=== PATIENT | male | born 1965 | race Asian ===

== ENCOUNTER 2016-10-10 15:34 | Emergency (ER) ==
--- NOTE | 2016-10-10 19:01 | PROVIDER DOCUMENTATION ---
HPI-Fever - General Chief Complaint: Fever Stated Complaint: FEVER Time Seen by Provider: 10/10/16 18:49 Source: patient Allergies/Adverse Reactions: Patient Allergies Allergy/AdvReac Type Severity Reaction Status Date / Time No Known Allergies Allergy Verified 12/13/15 15:03 Home Medications: Home Medication List Medication Instructions Recorded Confirmed Last Taken Type Clindamycin [Cleocin] 300 mg PO Q6HR #40 capsule 10/10/16 Unknown Rx Sulfamethoxazole/Trimethoprim 2 each PO BID #40 tablet 10/10/16 Unknown Rx [Bactrim Ds Tablet] - History of Present Illness-Fever Nature of Presenting Problem: 51 year old M presents to the ED with a cc of fever, cough, congestion, and body aches with an onset of 2 days. Fever Severity/Quality: reports: low grade Onset/Duration: reports: 2 days ago Timing: reports: still present Severity: reports: mild Cognitive Baseline: alert, oriented x3 Modifying Factors: improves with: nothing Associated Symptoms: reports: cough, fever/chills, sinus congestion/drainage Similar Symptoms Previously?: No Recently seen or treated by another doctor?: No Review of Systems - Adult - REVIEW OF SYSTEMS - ADULT Constitutional: reports: fever. denies: chills Eyes: reports: no symptoms reported Ears, Nose, Mouth & Throat: denies: ear pain, throat pain Cardiovascular: denies: chest pain, palpitations Respiratory: reports: cough. denies: shortness of breath Gastrointestinal: denies: nausea, vomiting Genitourinary: reports: no symptoms reported Musculoskeletal: reports: muscle aches. denies: muscle weakness Integumentary: denies: skin sores/ulcer, skin thickening Neurological: reports: no symptoms reported Psychiatric: reports: no symptoms reported Endocrine: reports: no symptoms reported Hematologic/Lymphatic: reports: no symptoms reported Allergic/Immunologic: reports: no symptoms reported All Other Systems: Reviewed and Negative Past History - Adult - PAST MEDICAL HISTORY-ADULT Review of Records: reports: Nursing Assessment Review, Medications Reviewed Major Childhood Illnesses: reports: denies history Cardiovascular: reports: HTN, hyperlipidemia Gastrointestinal: reports: GERD - PRIOR SURGERIES/PROCEDURES Surgical/Procedure History: reports: none - IMMUNIZATION STATUS Childhood Immunizations: See Nurse Assessment Flu Vaccine: See Nurse Assessment - SOCIAL HISTORY Smoking: cigarettes, greater than 1 pack/day Provider spent 3-5 mins advising pt. on dangers of tobacco.: Discussed manners to quit use, and f/u contacts for add'l counseling. Substance Use: none/never Alcohol Use Frequency: never Physical Exam-General - PHYSICAL EXAM-ADULT Initial Vital Signs Reviewed: Yes - CONSTITUTIONAL General Appearance: appears well, alert, no apparent distress - RESPIRATORY Respiratory: chest non-tender, lungs clear, normal breath sounds - CARDIOVASCULAR Cardiovascular: normal peripheral pulses, regular rate, rhythm, no edema - GASTROINTESTINAL (ABDOMEN) Abdominal Exam: non tender, soft - MUSCULOSKELETAL Extremity: normal inspection - SKIN Integumentary: other (1x2 cm lesion to left medial heel) - PSYCHIATRIC Psych/Mental Status: normal mood/affect, normal thought content, normal thought process, oriented x 3 Progress - PLAN OF CARE/RESULTS Progress/Plan/Lab Results: plan of care: imaging, labs, medications Orders Category Date Time Status Saline Loc NOW Care 10/10/16 18:53 Active CHEST-2 VIEWS [RAD] Stat Exams 10/10/16 18:53 Taken FOOT COMPLETE LEFT [RAD] Stat Exams 10/10/16 18:54 Taken BLOOD CULTURE [BLDCUL] Stat Lab 10/10/16 18:54 Ordered CBC WITH ELECTRONIC DIFF [HEME] Stat Lab 10/10/16 19:25 Completed COMPREHENSIVE METABOLIC PANEL [CHEM] Stat Lab 10/10/16 19:[address] Stat Lab 10/10/16 19:00 Completed LACTATE, PLASMA [CHEM] Stat Lab 10/10/16 19:25 Completed MAGNESIUM [CHEM] Stat Lab 10/10/16 19:25 Completed [address]IME WITH INR PL [COAG] Stat Lab 10/10/16 19:[address] [COAG] Stat Lab 10/10/16 19:25 Completed 0.9% Sodium Chloride Inj [Ns] 1,000 ml Med 10/10/16 21:08 Discontinued .ROUTE As Directed 0.9% Sodium Chloride Inj [Ns] 1,000 ml Med 10/10/16 21:08 Active IV 999 mls/hr Ketorolac [Toradol] Med 10/10/16 20:21 Discontinued 30 mg IV NOW ONE Laboratory Tests 10/10/16 10/10/16 10/10/16 19:00 19:25 19:25 WBC 10.14 RBC 4.74 Hgb 14.3 Hct 41.4 L MCV 87.3 MCH 30.2 MCHC 34.5 RDW Std Deviation 13.4 Plt Count 154 MPV 10.5 H Immature Gran % (Auto) 0.1 Neut % (Auto) 59.8 Lymph % (Auto) 26.5 [place] % (Auto) 11.2 H Eos % (Auto) 1.9 Baso % (Auto) 0.5 Immature Gran # (Auto) 0.01 Neut # (Auto) 6.06 Lymph # (Auto) 2.69 [place] # (Auto) 1.14 H Eos # (Auto) 0.19 Baso # (Auto) 0.05 PT INR APTT (Factor Assay) Sodium 134 L Potassium 3.7 Chloride 99 Carbon Dioxide 23 L Anion Gap 13 BUN 16 Creatinine 0.8 Estimated GFR/1.73 m2 > 60 BUN/Creatinine Ratio 20 Glucose 95 Calculated Osmolality 269 Calcium 9.4 Magnesium 2.1 Total Bilirubin 1.20 H AST 20 ALT 37 Alkaline Phosphatase 114 Total Protein 7.4 Albumin 4.2 Globulin 3.0 Albumin/Globulin Ratio 1.0 Plasma Lactate Influenza A (Rapid) NEGATIVE Influenza B (Rapid) NEGATIVE 10/10/16 10/10/16 19:25 19:25 WBC RBC Hgb Hct MCV MCH MCHC RDW Std Deviation Plt Count MPV Immature Gran % (Auto) Neut % (Auto) Lymph % (Auto) [place] % (Auto) Eos % (Auto) Baso % (Auto) Immature Gran # (Auto) Neut # (Auto) Lymph # (Auto) [place] # (Auto) Eos # (Auto) Baso # (Auto) PT 14.3 INR 1.08 APTT (Factor Assay) 33.7 Sodium Potassium Chloride Carbon Dioxide Anion Gap BUN Creatinine Estimated GFR/1.73 m2 BUN/Creatinine Ratio Glucose Calculated Osmolality Calcium Magnesium Total Bilirubin AST ALT Alkaline Phosphatase Total Protein Albumin Globulin Albumin/Globulin Ratio Plasma Lactate 0.9 Influenza A (Rapid) Influenza B (Rapid) Vital Signs - 24 hr 10/10/16 10/10/16 10/10/16 15:58 18:18 18:41 Temperature 99.8 F H 99.4 F 98.1 F Pulse Rate 110 H 82 Respiratory 20 20 Rate Blood Pressure 140/86 124/78 O2 Sat by Pulse 99 97 Oximetry Pt given results and will be d/c home w/ rx to follow up with PCP. Pt verbally understood instructions. Pt remained clinically stable throughout the course of the ED stay and will return if symptoms worsen. - XRAY 1 XRAY: Left XRAY Study: Foot Impression: Normal XRAY Interpretation: NAD: Dr. Joseph CASILLAS MD 2 XRAY Study: Chest Impression: Abnormal XRAY Interpretation: questionable RLL infiltrate: Dr. Sascha CHIN Departure - Departure Prescriptions: Sulfamethoxazole/Trimethoprim [Bactrim Ds Tablet] 2 each PO BID #40 tablet Clindamycin [Cleocin] 300 mg PO Q6HR #40 capsule Attestation - Scribe Verification/Attestation Scribe:: Andreina Blevins Acting as Scribe for:: Pawel Cummins Scribe documention review:: This chart was documented by a scribe and accurately reflects the service the provider performed and the decisions made by the provider. Physician Attestation - Physician Attestation I, the provider, attest to the following statement:: Pawel Cummins Physician documentation Attestation:: This documentation recorded by the scribe accurately reflects the service I personally performed and the decisions made by me.
[2016-10-10 19:32] LABS: MANUAL DIFF NEEDED? NO
[2016-10-10 19:37] LABS: BASO% 0.5 % (0.0-0.8); EOS# 0.19 X1000 (0.0-0.7); EOS% 1.9 % (0.0-10.0); HEMATOCRIT 41.4 % (42.0-52.0); HEMOGLOBIN 14.3 g/dL (14.0-18.0); IMM GRAN# 0.01 X1000 (0.0-0.04); IMM GRAN% 0.1 % (0.0-0.5); LYMPH# 2.69 X1000 (1.2-3.4); LYMPH% 26.5 % (20.5-51.1); MCH 30.2 PG (27-31); MCHC 34.5 g/dL (33-37); MCV 87.3 FL (81-99); MONO# 1.14 X1000 (0.11-0.59); MONO% 11.2 % (1.7-9.3); MPV 10.5 FL (7.4-10.4); NEUT% 59.8 % (42.2-75.2); PLT 154 X1000 (130-400); RBC 4.74 XMIL (4.7-6.1)
[2016-10-10 20:03] LABS: AGAP 13; ALBUMIN 4.2 g/dL (3.5-5.0); ALKALINE PHOSPHATASE 114 U/L (32-122); BUN 16 mg/dL (8-22); CALCIUM 9.4 mg/dL (8.8-10.2); CHLORIDE 99 mmol/L (98-107); COSMO 269; GOT 20 U/L (10-34); GPT 37 U/L (10-44); MAGNESIUM 2.1 mg/dL (1.5-2.7); POTASSIUM 3.7 mmol/L (3.5-5.1); SODIUM 134 mmol/L (136-145); TCO2 23 mmol/L (25-35); TOTAL PROTEIN 7.4 g/dL (6.3-8.3)
[2016-10-10 20:07] LABS: INR 1.08 (0.86-1.15); PROTIME 14.3 Seconds (12.1-15.5)
[2016-10-10 20:08] LABS: PTT PL 33.7 Seconds (22.6-43.9)
[2016-10-10] MEDS ORDERED: TORADOL IV ONE (20:21)
[2016-10-10] MEDS ORDERED: NS 2,000 ML ONE (21:08)
[2016-10-10] MEDS ORDERED: NS 1,000 ML IV ONE ×2 (21:08→22:30)
[2016-10-10] MEDS ORDERED: CLEOCIN ONE (23:16)
[2016-10-10] MEDS ORDERED: SEPTRA DS ONE (23:16)
[2016-10-10] MEDS ORDERED: CLEOCIN PO ONE (23:20)
[2016-10-10] MEDS ORDERED: SEPTRA DS PO ONE (23:20)
[2016-10-10 23:24] VITALS: BP 117/73
--- NOTE | 2016-10-11 07:36 | Diag Imaging Result Document ---
PROCEDURE NAME: CHEST-2 VIEWS - 10/10/2016 FRONTAL AND LATERAL CHEST, TWO VIEWS: COMPARISON: 12/13/2015. FINDINGS: The lungs are well expanded. The heart is not enlarged. The vessels are not distended. No pneumonia. No pleural effusions. No free air beneath the diaphragm. IMPRESSION: No acute abnormality.
--- NOTE | 2016-10-11 07:57 | Diag Imaging Result Document ---
PROCEDURE NAME: FOOT COMPLETE LEFT - 10/10/2016 LEFT FOOT, 3 VIEWS: FINDINGS: There is dorsal spurring of the calcaneus. There is no evidence of acute fracture or dislocation. IMPRESSION: No evidence of acute disease.
== END 2016-10-10 23:23 | disposition home or self-care (01) ==
LOC: P.ED 15:34
DX: R05 Cough (principal); R91.8 Other nonspecific abnormal finding of lung field; M77.32 Calcaneal spur, left foot; R50.9 Fever, unspecified; R09.81 Nasal congestion; M79.1 Myalgia; I10 Essential (primary) hypertension; E78.5 Hyperlipidemia, unspecified; F17.210 Nicotine dependence, cigarettes, uncomplicated; Z71.6 Tobacco abuse counseling
CPT/HCPCS: 71020; 80053; 83605; 83735; 85025; 85610; 85730; 87040; 87804; 96361; 96374; J1885; J7030